=== PATIENT | female | born 1975 | race Caucasian/White ===

== ENCOUNTER 2017-03-13 18:30 | Emergency (ER) | payer MEDICAID ==
[~2017-03-13] VITALS: Ht 162.6 cm; Wt 70.5 kg
[~2017-03-13 18:30] MED LIST: GABA100C PO; HYDR25CA PO
[2017-03-13 18:58] VITALS: Ht 162.6 cm; Wt 70.5 kg
[2017-03-13] MEDS ORDERED: CIPR7.5D4 RIGHT EAR (19:29)
[2017-03-13] MEDS ORDERED: PRED50TA PO (19:29)
[2017-03-13] MEDS ORDERED: IBUP-1542 PO (19:29)
--- NOTE | 2017-03-13 20:09 | ERD ---
ER Documentation Chief Complaint Date/Time DATE: 03/13/17 TIME: 20:06 Chief Complaint right ear pain x1 week HPI 41-year-old female presents here in emergency department for complaints of right ear pain that started one week ago. Patient describes the pain as throbbing, 8/10 scale, not better or worse with anything. Patient denies any ear discharge. Patient denies any problems hearing. Patient denies any ear discharge. Patient denies any fever or chills. ROS All systems reviewed and are negative except as per history of present illness. Medications Home Meds Active Scripts Prednisone* (Prednisone*) 50 Mg Tablet, 50 MG PO DAILY for 5 Days, TAB Prov:ISAIAH MAGDALENO [employer]IST 03/13/17 Ibuprofen* (Motrin*) 600 Mg Tab, 600 MG PO Q6H Y for PAIN AND OR ELEVATED TEMP, #30 TAB Prov:ISAIAH MAGDALENO [employer]ATIONS SPECIALIST 03/13/17 Ciprofloxacin Hcl/Dexameth (Ciprodex Otic Suspension) 7.5 Ml Drops.susp, 4 DROP RIGHT EAR BID, #1 BOTTLE Prov:ISAIAH MAGDALENO NP 03/13/17 Hydroxyzine Pamoate* (Vistaril*) 25 Mg Capsule, 25 MG PO Q8, #10 CAP Prov:ADA ANSARI DO 06/29/16 Gabapentin* (Neurontin*) 100 Mg Capsule, 100 MG PO TID, #21 CAP Prov:ADA ANSARI DO 06/29/16 Allergies Allergies: Coded Allergies: Penicillins (Verified Allergy, Unknown, 06/01/16) PMhx/Soc History of Surgery: Yes (ABDOMINAL CYST) Anesthesia Reaction: No Hx Neurological Disorder: No Hx Respiratory Disorders: No Hx Cardiac Disorders: No Hx Psychiatric Problems: Yes (DEPRESSION ANXIETY) Hx Miscellaneous Medical Probl: Yes (NERVE PAIN) Hx Alcohol Use: No Hx Substance Use: No Hx Tobacco Use: No FmHx Family History: No coronary disease, No diabetes, No other Physical Exam Vitals Vital Signs Date Time Temp Pulse Resp B/P Pulse Ox O2 Delivery O2 Flow Rate FiO2 03/13/17 18:58 97.1 112 20 138/69 100 Physical Exam GENERAL: The patient is well developed and appropriate for usual state of health, in no apparent distress. HEENT: Atraumatic. Ears: Normal tympanic membrane, no erythema or bulging. Right ear canal noted to be erythematous and swollen with purulent discharge. Left ear canal is normal. Nose: normal nasal turbinates, no erythema or swelling. Normal nasal discharge. Throat: oropharynx clear. No tonsillar swelling or tonsillar exudates. No lymphadenopathy. CHEST: Clear to auscultation bilaterally. There are no rales, wheezes or rhonchi. HEART: Regular rate and rhythm. No murmurs, clicks, rubs or gallops. No S3 or S4. ABDOMEN: Soft, nontender and nondistended. Good bowel sounds. No rebound or guarding. No gross peritonitis. No gross organomegaly or masses. No Lundy sign or McBurney point tenderness. BACK: No midline or flank tenderness. EXTREMITIES: Equal pulses bilaterally. There is no peripheral clubbing, cyanosis or edema. No focal swelling or erythema. Full range of motion. Grossly neurovascularly intact. NEURO: Alert and oriented. Cranial nerves 2-12 intact. Motor strength in all 4 extremities with 5/5 strength. Sensation grossly intact. Normal speech and gait. SKIN: There is no apparent rash or petechia. The skin is warm and dry. HEMATOLOGIC AND LYMPHATIC: There is no evidence of excessive bruising or lymphedema. No gross cervical, axillary, or inguinal lymphadenopathy. Procedures/MDM Medical decision making: Patient symptoms is likely consistent with otitis externa, no symptoms of otitis media or mastoiditis. No foreign body. No TM perforation. No symptoms of any malignant otitis. No symptoms of any cellulitis. Prescription was given for Ciprodex, prednisone, Proventil, is advised to follow-up with primary care doctor in 2-3 days for reevaluation of her symptoms. She was advised to return to emergency department Disposition: Home. Stable. Departure Diagnosis: Primary Impression: Otitis externa Otitis externa type: unspecified type Laterality: right Chronicity: acute Qualified Code: H60.501 - Acute otitis externa of right ear, unspecified type Condition: Stable Patient Instructions: External Ear Infection (Adult) ISAIAH MAGDALENO NP Mar 13, 2017 20:09
== END 2017-03-13 19:30 | disposition home or self-care (01) ==
LOC: E/R 18:30
DX: H60.501 Unspecified acute noninfective otitis externa, right ear (principal)
CPT/HCPCS: 99283